=== PATIENT | male | born 1985 | race African-American/Black ===

== ENCOUNTER 2017-09-30 04:33 | Emergency (ER) | payer OTHER ==
[2017-09-30] MEDS ORDERED: predniSONE 20 MG TAB ONE (04:48)
[2017-09-30] MEDS ORDERED: Ketorolac Tromethamine 60 MG/2 ML VIAL ONE (04:48)
[2017-09-30] MEDS ORDERED: Amoxicillin/Potassium Clav 875 MG TAB ONE (04:48)
== END 2017-09-30 05:05 | disposition home or self-care (01) ==
LOC: MADERS 04:33
DX: K02.9 Dental caries, unspecified (principal); Z86.73 Personal history of transient ischemic attack (TIA), and cerebral infarction without residual deficits; F32.9 Major depressive disorder, single episode, unspecified; F17.210 Nicotine dependence, cigarettes, uncomplicated; I10 Essential (primary) hypertension
CPT/HCPCS: 96372; J1885; J7506

== ENCOUNTER 2018-12-22 03:41 | Emergency (ER) | payer OTHER | END 2018-12-22 04:05 | disposition home or self-care (01) | LOC: MADERS 03:41 | DX: K02.9 Dental caries, unspecified (principal); Z71.6 Tobacco abuse counseling; I10 Essential (primary) hypertension; Z86.73 Personal history of transient ischemic attack (TIA), and cerebral infarction without residual deficits; F32.9 Major depressive disorder, single episode, unspecified; F17.210 Nicotine dependence, cigarettes, uncomplicated | CPT/HCPCS: 99406 ==